=== PATIENT | male | born 1985 | race African-American/Black ===

== ENCOUNTER 2017-01-16 17:38 | Emergency (ER) | payer MEDICAID, OTHER ==
[~2017-01-16] VITALS: Ht 185.4 cm; Wt 86.0 kg
[2017-01-16] MEDS ORDERED: LIDOCAINE HCL 1% 20ML VIAL (Pyxis) INJ MC ONE (21:15)
[2017-01-16] MEDS ORDERED: TETANUS, DIPHTHERIA, PERTUSSIS VAC/PF 0.5ML (>7YR OLD) IM ONE (21:15)
[2017-01-16] MEDS ORDERED: BACITRACIN ZINC OINT UDPKT TOP ONE (21:15)
[2017-01-17 00:47] VITALS: BP 123/56
== END 2017-01-17 00:50 | disposition home or self-care (01) ==
LOC: ER 18:39
DX: S61.212A Laceration without foreign body of right middle finger without damage to nail, initial encounter (principal); S40.812A Abrasion of left upper arm, initial encounter; S51.812A Laceration without foreign body of left forearm, initial encounter; S61.512A Laceration without foreign body of left wrist, initial encounter; Y28.8XXA Contact with other sharp object, undetermined intent, initial encounter; Y93.89 Activity, other specified; Y92.89 Other specified places as the place of occurrence of the external cause
CPT/HCPCS: 12002; 73130; 90471; 90715; 99284; J3490; Z7610